=== PATIENT | male | born 1975 | race Hispanic/Latino ===

== ENCOUNTER 2017-06-06 08:52 | Inpatient (IN) | payer OTHER, SELFPAY ==
[~2017-06-06] VITALS: Ht 190.5 cm; Wt 150.4 kg
[2017-06-06 10:03] LABS: BASOPHILS % (AUTO) 0.5 % (0.0-5.0); HEMATOCRIT 39.6 % (42-54); LYMPHOCYTES % (AUTO) 15.7 % (21.0-51.0); MEAN CORPUSCULAR HEMOGLOBIN 29.2 pg (27.0-33.0); MEAN CORPUSCULAR HGB CONC 34.1 g/dL (32.0-36.0); MEAN CORPUSCULAR VOLUME 85.7 fL (79-99); MONOCYTES % (AUTO) 5.7 % (3.0-13.0); NEUTROPHILS % (AUTO) 77.1 % (40.0-77.0); PLATELET COUNT (AUTO) 256 K/uL (130-400); RED BLOOD CELL COUNT(AUTO) 4.62 MIL/uL (4.50-6.20); RED CELL DISTRIBUTION WIDTH 13.6 % (11.0-15.5); WHITE BLOOD COUNT (AUTO) 10.7 K/uL (4.8-10.8)
[2017-06-06 10:14] LABS: CREATININE 0.8 mg/dL (0.5-1.5); POTASSIUM 4.3 mmol/L (3.5-5.1)
[2017-06-06] MEDS ORDERED: ZOSYN 3.375GM+NS 50ML 50 ML IV ONE (11:21)
[2017-06-06] MEDS ORDERED: VANCOMYCIN PROTOCOL PER PHARMACY IV PRN (11:30)
[2017-06-06] MEDS ORDERED: ONDANSETRON HCL 4 MG/2 ML VIAL IV PRN (11:30)
[2017-06-06] MEDS ORDERED: HYDRALAZINE HCL 20 MG/ML VIAL IV PRN (11:30)
[2017-06-06] MEDS ORDERED: MORPHINE SULFATE 2 MG/ML 1ML SYG IV PRN (11:30)
[2017-06-06] MEDS ORDERED: VANCOMYCIN 1GM+NS 250ML 250 ML IV SCH (11:30)
[2017-06-06] MEDS ORDERED: VANCOMYCIN PROTOCOL PER PHARMACY IV SCH (11:45)
[2017-06-06] MEDS ORDERED: ONDANSETRON HCL MDV 20ML 2 MG/ML VIAL IVP PRN (12:30)
[2017-06-06] MEDS ORDERED: SODIUM CHLORIDE 0.9% 1000ML 1,000 ML IV ONE (13:22)
[2017-06-06] MEDS ORDERED: VANCOMYCIN 1GM+NS 250ML 250 ML IV ONE (13:23)
[2017-06-06 20:38] VITALS: BP 159/79
[2017-06-06] MEDS: ZOSYN 3.375GM+NS 50ML 50 ML IV SCH (21:00)
[2017-06-06] MEDS ORDERED: LISI-613 PO (22:16)
[2017-06-06] MEDS ORDERED: METF10004 PO (22:16)
[2017-06-06] MEDS ORDERED: GLIP5TAB11 PO (22:16)
[2017-06-06] MEDS ORDERED: SIMV10TA6 PO (22:16)
[2017-06-06 23:16] VITALS: BP 149/77
[2017-06-07] MEDS: SODIUM CHLORIDE 0.9% 1000ML 1,000 ML IV SCH ×3 (00:21→13:09)
[2017-06-07] MEDS: ACETAMINOPHEN 325 MG TAB PO PRN (01:33)
[2017-06-07 03:19] VITALS: BP 130/66
[2017-06-07 04:48] LABS: INR 0.98 (0.85-1.15); PARTIAL THROMBOPLASTIN TIME 27.9 SEC (26.3-35.5); PROTHROMBIN TIME 10.3 SEC (9.6-11.6)
[2017-06-07 04:54] LABS: HEMATOCRIT 35.8 % (42-54); MEAN CORPUSCULAR HEMOGLOBIN 29.9 pg (27.0-33.0); MEAN CORPUSCULAR HGB CONC 34.9 g/dL (32.0-36.0); MEAN CORPUSCULAR VOLUME 85.7 fL (79-99); PLATELET COUNT (AUTO) 258 K/uL (130-400); RED BLOOD CELL COUNT(AUTO) 4.18 MIL/uL (4.50-6.20); RED CELL DISTRIBUTION WIDTH 13.6 % (11.0-15.5); WHITE BLOOD COUNT (AUTO) 8.3 K/uL (4.8-10.8)
[2017-06-07 04:57] LABS: CREATININE 0.8 mg/dL (0.5-1.5); MAGNESIUM 1.5 mg/dL (1.80-2.40); POTASSIUM 3.8 mmol/L (3.5-5.1)
[2017-06-07 05:07] LABS: HEMOGLOBIN A1C 10.6 % (4.0-6.0)
[2017-06-07] MEDS ORDERED: COMPOUND IV REFRIGERATED 1 EACH IVSOLN MISC PRN (06:30)
[2017-06-07 08:00] VITALS: BP 156/90
[2017-06-07] MEDS: ZOSYN 3.375GM+NS 50ML 50 ML IV SCH ×3 (08:24→21:10)
[2017-06-07] MEDS: PANTOPRAZOLE SODIUM 40 MG TABLET.DR PO SCH (09:00)
[2017-06-07] MEDS: VANCOMYCIN 2.25 GM in SODIUM CHLORIDE 0.9% 500ML 500 ML IV SCH ×2 (10:06→21:09)
[2017-06-07 11:00] VITALS: BP 157/91
[2017-06-07] MEDS ORDERED: MAGNESIUM 2GM PREMIX 50ML 50 ML IV SCH (11:15)
[2017-06-07 16:00] VITALS: BP 143/85
[2017-06-07 19:07] VITALS: BP 143/70
[2017-06-07 23:08] VITALS: BP 157/74
[2017-06-08] VITALS (19 sets, daily range): BP systolic 127–166; BP diastolic 70–93
[2017-06-08] MEDS: SODIUM CHLORIDE 0.9% 1000ML 1,000 ML IV SCH ×3 (03:24→23:24)
[2017-06-08] MEDS: ZOSYN 3.375GM+NS 50ML 50 ML IV SCH ×3 (04:39→21:24)
[2017-06-08 08:02] LABS: CREATININE 0.9 mg/dL (0.5-1.5); POTASSIUM 3.8 mmol/L (3.5-5.1)
[2017-06-08] MEDS: PANTOPRAZOLE SODIUM 40 MG TABLET.DR PO SCH (09:00)
[2017-06-08] MEDS: VANCOMYCIN 2.25 GM in SODIUM CHLORIDE 0.9% 500ML 500 ML IV SCH ×2 (10:21→21:24)
[2017-06-08] MEDS ORDERED: DEXAMETHASONE SOD PHOSPHATE 10MG/ML 1ML VIAL ONE (11:44)
[2017-06-08] MEDS ORDERED: LIDOCAINE PF 2% 5ML ABBOJECT ONE (11:44)
[2017-06-08] MEDS ORDERED: GLYCOPYRROLATE 0.2 MG/ML 5 ML VIAL ONE (11:44)
[2017-06-08] MEDS ORDERED: MIDAZOLAM HCL 1 MG/ML 2ML VIAL ONE (11:47)
[2017-06-08] MEDS ORDERED: PROPOFOL 10 MG/ML 20ML VIAL IV ONE (11:47)
[2017-06-08] MEDS ORDERED: FENTANYL CITRATE PF 50 MCG/1 ML 2ML VIAL ONE ×2 (11:48→12:11)
[2017-06-08] MEDS ORDERED: BACITRACIN 50,000 UNIT VIAL ONE (12:08)
[2017-06-08] MEDS ORDERED: INSULIN GLARGINE 100 UNITS/ML 10 ML VIAL SQ SCH (21:00)
[2017-06-08] MEDS: METFORMIN HCL 500 MG TABLET PO SCH (21:23)
[2017-06-08] MEDS: ATORVASTATIN CALCIUM 10 MG TABLET PO SCH (21:23)
[2017-06-08] MEDS: GLIPIZIDE 5 MG TABLET PO SCH (21:23)
[2017-06-09 03:15] VITALS: BP 146/75
[2017-06-09] MEDS: ZOSYN 3.375GM+NS 50ML 50 ML IV SCH ×3 (04:26→20:20)
[2017-06-09 07:46] VITALS: BP 156/90
[2017-06-09 12:03] VITALS: BP 150/87
[2017-06-09] MEDS: METFORMIN HCL 500 MG TABLET PO SCH ×2 (13:53→16:23)
[2017-06-09] MEDS: VANCOMYCIN 2.25 GM in SODIUM CHLORIDE 0.9% 500ML 500 ML IV SCH ×2 (13:54→20:20)
[2017-06-09] MEDS: LISINOPRIL 20 MG TABLET PO SCH (13:54)
[2017-06-09] MEDS: GLIPIZIDE 5 MG TABLET PO SCH ×2 (13:54→20:20)
[2017-06-09] MEDS: PANTOPRAZOLE SODIUM 40 MG TABLET.DR PO SCH (13:55)
[2017-06-09] MEDS: SODIUM CHLORIDE 0.9% 1000ML 1,000 ML IV SCH ×2 (13:57→19:24)
[2017-06-09 16:14] VITALS: BP 149/82
[2017-06-09] MEDS: ACETAMINOPHEN 325 MG TAB PO PRN (16:26)
[2017-06-09 19:24] VITALS: BP 140/62
[2017-06-09] MEDS: ATORVASTATIN CALCIUM 10 MG TABLET PO SCH (20:19)
[2017-06-09] MEDS: INSULIN GLARGINE 100 UNITS/ML 10 ML VIAL SQ SCH (21:09)
[2017-06-10] VITALS (7 sets, daily range): BP systolic 138–159; BP diastolic 66–90
[2017-06-10 04:27] LABS: HEMATOCRIT 36.7 % (42-54); MEAN CORPUSCULAR HEMOGLOBIN 29.2 pg (27.0-33.0); MEAN CORPUSCULAR VOLUME 85.8 fL (79-99); PLATELET COUNT (AUTO) 271 K/uL (130-400); RED BLOOD CELL COUNT(AUTO) 4.27 MIL/uL (4.50-6.20); RED CELL DISTRIBUTION WIDTH 13.6 % (11.0-15.5); WHITE BLOOD COUNT (AUTO) 9.3 K/uL (4.8-10.8)
[2017-06-10 04:40] LABS: POTASSIUM 3.5 mmol/L (3.5-5.1)
[2017-06-10] MEDS: SODIUM CHLORIDE 0.9% 1000ML 1,000 ML IV SCH ×2 (05:24→17:28)
[2017-06-10] MEDS: ZOSYN 3.375GM+NS 50ML 50 ML IV SCH ×2 (05:34→17:28)
[2017-06-10] MEDS: AMLODIPINE BESYLATE 5 MG TAB PO SCH (12:30)
[2017-06-10] MEDS: METFORMIN HCL 500 MG TABLET PO SCH ×2 (12:30→18:47)
[2017-06-10] MEDS: LISINOPRIL 20 MG TABLET PO SCH (12:30)
[2017-06-10] MEDS: PANTOPRAZOLE SODIUM 40 MG TABLET.DR PO SCH (12:30)
[2017-06-10] MEDS: GLIPIZIDE 5 MG TABLET PO SCH ×2 (12:31→20:40)
[2017-06-10] MEDS: HYDROCHLOROTHIAZIDE 25 MG TABLET PO SCH (12:42)
[2017-06-10] MEDS: VANCOMYCIN 2.25 GM in SODIUM CHLORIDE 0.9% 500ML 500 ML IV SCH ×2 (12:46→23:25)
[2017-06-10] MEDS ORDERED: MORPHINE SULFATE 4 MG/1ML SYG ONE (15:26)
[2017-06-10] MEDS: ATORVASTATIN CALCIUM 10 MG TABLET PO SCH (20:40)
[2017-06-10] MEDS: INSULIN GLARGINE 100 UNITS/ML 10 ML VIAL SQ SCH (20:46)
[2017-06-11] MEDS: ZOSYN 3.375GM+NS 50ML 50 ML IV SCH ×2 (02:36→05:00)
[2017-06-11 04:00] VITALS: BP 140/78
[2017-06-11 06:34] LABS: BASOPHILS % (AUTO) 0.8 % (0.0-5.0); EOSINOPHILS % (AUTO) 1.7 % (0.0-8.0); HEMATOCRIT 36.5 % (42-54); LYMPHOCYTES % (AUTO) 19.3 % (21.0-51.0); MEAN CORPUSCULAR HEMOGLOBIN 30.1 pg (27.0-33.0); MEAN CORPUSCULAR HGB CONC 35.2 g/dL (32.0-36.0); MEAN CORPUSCULAR VOLUME 85.7 fL (79-99); MONOCYTES % (AUTO) 6.5 % (3.0-13.0); NEUTROPHILS % (AUTO) 71.7 % (40.0-77.0); PLATELET COUNT (AUTO) 283 K/uL (130-400); RED BLOOD CELL COUNT(AUTO) 4.26 MIL/uL (4.50-6.20); RED CELL DISTRIBUTION WIDTH 13.3 % (11.0-15.5)
[2017-06-11 06:40] LABS: CREATININE 1.2 mg/dL (0.5-1.5); POTASSIUM 3.5 mmol/L (3.5-5.1)
[2017-06-11 08:04] VITALS: BP 146/78
[2017-06-11] MEDS: VANCOMYCIN 2.25 GM in SODIUM CHLORIDE 0.9% 500ML 500 ML IV SCH (10:03)
[2017-06-11] MEDS: AMLODIPINE BESYLATE 5 MG TAB PO SCH (10:03)
[2017-06-11] MEDS: PANTOPRAZOLE SODIUM 40 MG TABLET.DR PO SCH (10:03)
[2017-06-11] MEDS: LISINOPRIL 20 MG TABLET PO SCH (10:04)
[2017-06-11] MEDS: GLIPIZIDE 5 MG TABLET PO SCH (10:04)
[2017-06-11] MEDS: HYDROCHLOROTHIAZIDE 25 MG TABLET PO SCH (10:05)
[2017-06-11] MEDS: METFORMIN HCL 500 MG TABLET PO SCH (10:08)
[2017-06-11 11:30] VITALS: BP 150/78
[2017-06-11] MEDS ORDERED: PANT40TA PO (13:40)
[2017-06-11] MEDS ORDERED: INSLAN SQ (13:40)
[2017-06-11] MEDS ORDERED: HYDR25TA PO (13:40)
[2017-06-11] MEDS ORDERED: AMLO5TAB4 PO (13:40)
[2017-06-11] MEDS ORDERED: AMOX-429 PO (13:40)
[2017-06-11 15:45] VITALS: BP 144/98
== END 2017-06-11 17:55 | disposition home or self-care (01) | DRG 581 ==
LOC: EDH 08:52 → EDHIP 08:53 → INTOOBSV 11:25 → UNDOADMOB 11:25 → OBSVTOIN 11:25 → EDHIP 11:25 → 3DH 20:34 → EDHIP 20:34
PROVIDERS: ADMIT Internal Medicine Nephrology; ATTEND Internal Medicine Nephrology
PROC: 0W960ZZ Drainage of Neck, Open Approach (ICD-10-PCS; principal; 2017-06-08 12:12)
DX: L03.221 Cellulitis of neck (principal); E83.42 Hypomagnesemia; L02.11 Cutaneous abscess of neck; E11.9 Type 2 diabetes mellitus without complications; I10 Essential (primary) hypertension; E66.9 Obesity, unspecified; Z83.3 Family history of diabetes mellitus; Z87.891 Personal history of nicotine dependence
CPT/HCPCS: 36415; 76536; 80048; 80061; 80202; 82948; 83036; 83735; 85025; 85027; 85610; 85730; 87040; 87070; 87076; 87077; 87186; 87205; A4606; J1100; J2001; J2250; J2270; J2543; J2704; J3010; J3370; J3475; J3490; J7030; J7040

== ENCOUNTER → 2017-06-19 | Outpatient (CLI) | payer SELFPAY ==
[~2017-06-19] MED LIST: AMLO5TAB4 PO; AMOX-429 PO; GLIP5TAB11 PO; HYDR25TA PO; INSLAN SQ; LISI-613 PO; METF10004 PO; PANT40TA PO; SIMV10TA6 PO
[2017-06-19 10:17] VITALS: BP 153/87
== END | disposition home or self-care (01) ==
LOC: WHH 09:45
PROVIDERS: ATTEND Emergency Medicine
DX: E11.622 Type 2 diabetes mellitus with other skin ulcer (principal); L98.491 Non-pressure chronic ulcer of skin of other sites limited to breakdown of skin; E66.9 Obesity, unspecified; I10 Essential (primary) hypertension; Z87.891 Personal history of nicotine dependence
CPT/HCPCS: 99211

== ENCOUNTER → 2019-12-29 | Outpatient (CLI) | payer BC ==
[~2019-12-29] MED LIST changes: -AMOX-429 PO; -GLIP5TAB11 PO; -HYDR25TA PO; +METF-446 PO; -METF10004 PO; -PANT40TA PO; -SIMV10TA6 PO; +SIMV10TA97 PO
== END | disposition home or self-care (01) ==
LOC: WHH 10:25
PROVIDERS: ATTEND Podiatrist Foot & Ankle Surgery
DX: M72.6 Necrotizing fasciitis (principal); E11.9 Type 2 diabetes mellitus without complications; I10 Essential (primary) hypertension; E78.5 Hyperlipidemia, unspecified; E66.01 Morbid (severe) obesity due to excess calories; Z79.4 Long term (current) use of insulin; Z79.899 Other long term (current) drug therapy
CPT/HCPCS: 99211; L3260

== ENCOUNTER → 2019-12-30 | Outpatient (CLI) | payer BC | END | disposition home or self-care (01) | LOC: WHH 11:00 | PROVIDERS: ATTEND Podiatrist Foot & Ankle Surgery | DX: M72.6 Necrotizing fasciitis (principal); E11.9 Type 2 diabetes mellitus without complications; I10 Essential (primary) hypertension; E78.5 Hyperlipidemia, unspecified; E66.01 Morbid (severe) obesity due to excess calories; Z79.4 Long term (current) use of insulin; Z79.899 Other long term (current) drug therapy | CPT/HCPCS: 99211 ==

== ENCOUNTER → 2020-01-03 | Outpatient (CLI) | payer BC | END | disposition home or self-care (01) | LOC: WHH 11:00 | PROVIDERS: ATTEND Podiatrist Foot & Ankle Surgery | DX: M72.6 Necrotizing fasciitis (principal); E11.9 Type 2 diabetes mellitus without complications; I10 Essential (primary) hypertension; E78.5 Hyperlipidemia, unspecified; E66.01 Morbid (severe) obesity due to excess calories; Z79.4 Long term (current) use of insulin; Z79.899 Other long term (current) drug therapy | CPT/HCPCS: 99211 ==

== ENCOUNTER → 2020-01-04 | Outpatient (CLI) | payer BC | END | disposition home or self-care (01) | LOC: WHH 10:30 | PROVIDERS: ATTEND Podiatrist Foot & Ankle Surgery | DX: M72.6 Necrotizing fasciitis (principal); E11.9 Type 2 diabetes mellitus without complications; I10 Essential (primary) hypertension; E78.5 Hyperlipidemia, unspecified; E66.01 Morbid (severe) obesity due to excess calories; Z79.4 Long term (current) use of insulin; Z79.899 Other long term (current) drug therapy | CPT/HCPCS: 99211 ==

== ENCOUNTER → 2020-01-05 | Outpatient (CLI) | payer BC | END | disposition home or self-care (01) | LOC: WHH 11:00 | PROVIDERS: ATTEND Podiatrist Foot & Ankle Surgery | DX: M72.6 Necrotizing fasciitis (principal); E11.621 Type 2 diabetes mellitus with foot ulcer; I87.312 Chronic venous hypertension (idiopathic) with ulcer of left lower extremity; L97.523 Non-pressure chronic ulcer of other part of left foot with necrosis of muscle; I10 Essential (primary) hypertension; E78.5 Hyperlipidemia, unspecified; E66.01 Morbid (severe) obesity due to excess calories; Z79.4 Long term (current) use of insulin; Z79.899 Other long term (current) drug therapy; Z68.39 Body mass index [BMI] 39.0-39.9, adult | CPT/HCPCS: 11042; 11045; A6209 ==

== ENCOUNTER → 2020-01-19 | Outpatient (CLI) | payer BC ==
[~2020-01-19] MED LIST changes: +LIDOCAINE HCL 2% JELLY 5 ML TP ONE
== END | disposition home or self-care (01) ==
LOC: WHH 09:45
PROVIDERS: ATTEND Podiatrist Foot & Ankle Surgery
DX: M72.6 Necrotizing fasciitis (principal); E11.621 Type 2 diabetes mellitus with foot ulcer; I87.312 Chronic venous hypertension (idiopathic) with ulcer of left lower extremity; L97.523 Non-pressure chronic ulcer of other part of left foot with necrosis of muscle; I10 Essential (primary) hypertension; E78.5 Hyperlipidemia, unspecified; E66.01 Morbid (severe) obesity due to excess calories; Z79.4 Long term (current) use of insulin; Z79.899 Other long term (current) drug therapy; Z68.39 Body mass index [BMI] 39.0-39.9, adult
CPT/HCPCS: 11042; A6209

== ENCOUNTER → 2020-01-26 | Outpatient (CLI) | payer BC ==
[~2020-01-26] MED LIST changes: -LIDOCAINE HCL 2% JELLY 5 ML TP ONE
== END | disposition home or self-care (01) ==
LOC: WHH 10:00
PROVIDERS: ATTEND Podiatrist Foot & Ankle Surgery
DX: M72.6 Necrotizing fasciitis (principal); E11.621 Type 2 diabetes mellitus with foot ulcer; I87.312 Chronic venous hypertension (idiopathic) with ulcer of left lower extremity; L97.523 Non-pressure chronic ulcer of other part of left foot with necrosis of muscle; I10 Essential (primary) hypertension; E78.5 Hyperlipidemia, unspecified; E66.01 Morbid (severe) obesity due to excess calories; Z79.4 Long term (current) use of insulin; Z79.899 Other long term (current) drug therapy; Z68.39 Body mass index [BMI] 39.0-39.9, adult
CPT/HCPCS: 99214; A6209; L3260

== ENCOUNTER → 2020-02-02 | Outpatient (CLI) | payer BC | END | disposition home or self-care (01) | LOC: WHH 09:30 | PROVIDERS: ATTEND Podiatrist Foot & Ankle Surgery | DX: M72.6 Necrotizing fasciitis (principal); E11.621 Type 2 diabetes mellitus with foot ulcer; I87.312 Chronic venous hypertension (idiopathic) with ulcer of left lower extremity; L97.523 Non-pressure chronic ulcer of other part of left foot with necrosis of muscle; I10 Essential (primary) hypertension; E78.5 Hyperlipidemia, unspecified; E66.01 Morbid (severe) obesity due to excess calories; Z79.4 Long term (current) use of insulin; Z79.899 Other long term (current) drug therapy; Z68.39 Body mass index [BMI] 39.0-39.9, adult | CPT/HCPCS: 11042; 11045; A6209 ==

== ENCOUNTER → 2020-02-23 | Outpatient (CLI) | payer BC ==
[~2020-02-23] MED LIST changes: +LIDOCAINE HCL 2% JELLY 5 ML TP ONE
== END | disposition home or self-care (01) ==
LOC: WHH 09:45
PROVIDERS: ATTEND Podiatrist Foot & Ankle Surgery
DX: M72.6 Necrotizing fasciitis (principal); E11.621 Type 2 diabetes mellitus with foot ulcer; I87.312 Chronic venous hypertension (idiopathic) with ulcer of left lower extremity; L97.523 Non-pressure chronic ulcer of other part of left foot with necrosis of muscle; I10 Essential (primary) hypertension; E78.5 Hyperlipidemia, unspecified; E66.01 Morbid (severe) obesity due to excess calories; Z79.4 Long term (current) use of insulin; Z79.899 Other long term (current) drug therapy; Z68.39 Body mass index [BMI] 39.0-39.9, adult
CPT/HCPCS: 99214; A6209; A6450

== ENCOUNTER → 2020-03-08 | Outpatient (CLI) | payer BC ==
[~2020-03-08] MED LIST changes: -LIDOCAINE HCL 2% JELLY 5 ML TP ONE
== END | disposition home or self-care (01) ==
LOC: WHH 08:00
PROVIDERS: ATTEND Podiatrist Foot & Ankle Surgery
DX: M72.6 Necrotizing fasciitis (principal); E11.621 Type 2 diabetes mellitus with foot ulcer; I87.312 Chronic venous hypertension (idiopathic) with ulcer of left lower extremity; L97.523 Non-pressure chronic ulcer of other part of left foot with necrosis of muscle; I10 Essential (primary) hypertension; E78.5 Hyperlipidemia, unspecified; E66.01 Morbid (severe) obesity due to excess calories; Z79.4 Long term (current) use of insulin; Z79.899 Other long term (current) drug therapy; Z68.39 Body mass index [BMI] 39.0-39.9, adult
CPT/HCPCS: 11042; A6209; A6450

== ENCOUNTER → 2020-03-22 | Outpatient (CLI) | payer BC ==
[~2020-03-22] MED LIST changes: +LIDOCAINE HCL 2% JELLY 5 ML TP ONE; -LISI-613 PO; +LISI20TA24 PO
== END | disposition home or self-care (01) ==
LOC: WHH 08:00
PROVIDERS: ATTEND Podiatrist Foot & Ankle Surgery
DX: M72.6 Necrotizing fasciitis (principal); E11.621 Type 2 diabetes mellitus with foot ulcer; I87.312 Chronic venous hypertension (idiopathic) with ulcer of left lower extremity; L97.523 Non-pressure chronic ulcer of other part of left foot with necrosis of muscle; I10 Essential (primary) hypertension; E78.5 Hyperlipidemia, unspecified; E66.01 Morbid (severe) obesity due to excess calories; Z79.4 Long term (current) use of insulin; Z79.899 Other long term (current) drug therapy; Z68.39 Body mass index [BMI] 39.0-39.9, adult
CPT/HCPCS: 99214; A6209

== ENCOUNTER → 2020-04-12 | Outpatient (CLI) | payer BC ==
[~2020-04-12] MED LIST changes: -LIDOCAINE HCL 2% JELLY 5 ML TP ONE
== END | disposition home or self-care (01) ==
LOC: WHH 08:00
PROVIDERS: ATTEND Podiatrist Foot & Ankle Surgery
DX: M72.6 Necrotizing fasciitis (principal); E11.621 Type 2 diabetes mellitus with foot ulcer; I87.312 Chronic venous hypertension (idiopathic) with ulcer of left lower extremity; L97.523 Non-pressure chronic ulcer of other part of left foot with necrosis of muscle; I10 Essential (primary) hypertension; E78.5 Hyperlipidemia, unspecified; E66.01 Morbid (severe) obesity due to excess calories; Z79.4 Long term (current) use of insulin; Z79.899 Other long term (current) drug therapy; Z68.39 Body mass index [BMI] 39.0-39.9, adult
CPT/HCPCS: 99214; A4450; A6209

== ENCOUNTER → 2020-04-13 | Outpatient (CLI) | payer BC | END | disposition home or self-care (01) | LOC: RAH 12:13 | PROVIDERS: ATTEND Podiatrist Foot & Ankle Surgery | DX: E11.621 Type 2 diabetes mellitus with foot ulcer (principal); M79.89 Other specified soft tissue disorders | CPT/HCPCS: 73630 ==

== ENCOUNTER → 2020-04-26 | Outpatient (CLI) | payer BC | END | disposition home or self-care (01) | LOC: WHH 08:00 | PROVIDERS: ATTEND Podiatrist Foot & Ankle Surgery | DX: M72.6 Necrotizing fasciitis (principal); E11.621 Type 2 diabetes mellitus with foot ulcer; I87.312 Chronic venous hypertension (idiopathic) with ulcer of left lower extremity; L97.523 Non-pressure chronic ulcer of other part of left foot with necrosis of muscle; I10 Essential (primary) hypertension; I96 Gangrene, not elsewhere classified; E78.5 Hyperlipidemia, unspecified; E66.01 Morbid (severe) obesity due to excess calories; Z79.4 Long term (current) use of insulin; Z79.899 Other long term (current) drug therapy; Z68.39 Body mass index [BMI] 39.0-39.9, adult | CPT/HCPCS: 99214; A6209; L3260 ==

== ENCOUNTER → 2020-05-17 | Outpatient (CLI) | payer BC ==
[~2020-05-17] MED LIST changes: +LIDOCAINE HCL 2% JELLY 5 ML TP ONE
== END | disposition home or self-care (01) ==
LOC: WHH 08:00
PROVIDERS: ATTEND Podiatrist Foot & Ankle Surgery
DX: M00.9 Pyogenic arthritis, unspecified (principal); M72.6 Necrotizing fasciitis; E11.621 Type 2 diabetes mellitus with foot ulcer; I87.312 Chronic venous hypertension (idiopathic) with ulcer of left lower extremity; L97.523 Non-pressure chronic ulcer of other part of left foot with necrosis of muscle; E11.52 Type 2 diabetes mellitus with diabetic peripheral angiopathy with gangrene; I96 Gangrene, not elsewhere classified; E78.5 Hyperlipidemia, unspecified; E66.01 Morbid (severe) obesity due to excess calories; Z79.4 Long term (current) use of insulin; Z79.899 Other long term (current) drug therapy; Z68.39 Body mass index [BMI] 39.0-39.9, adult
CPT/HCPCS: 99214; A6209

== ENCOUNTER → 2020-05-31 | Outpatient (CLI) | payer BC ==
[~2020-05-31] MED LIST changes: +AMLO-97 PO; +CEPH500T PO; +INSU100V12 SQ; +METF-445 PO; +SIMV-43 PO
== END | disposition home or self-care (01) ==
LOC: WHH 08:00
PROVIDERS: ATTEND Podiatrist Foot & Ankle Surgery
DX: M72.6 Necrotizing fasciitis (principal); E11.621 Type 2 diabetes mellitus with foot ulcer; I87.312 Chronic venous hypertension (idiopathic) with ulcer of left lower extremity; L97.523 Non-pressure chronic ulcer of other part of left foot with necrosis of muscle; E11.42 Type 2 diabetes mellitus with diabetic polyneuropathy; M00.9 Pyogenic arthritis, unspecified; E11.52 Type 2 diabetes mellitus with diabetic peripheral angiopathy with gangrene; I96 Gangrene, not elsewhere classified; I10 Essential (primary) hypertension; M79.89 Other specified soft tissue disorders; E78.5 Hyperlipidemia, unspecified; E66.01 Morbid (severe) obesity due to excess calories; Z79.4 Long term (current) use of insulin; Z79.899 Other long term (current) drug therapy; Z68.39 Body mass index [BMI] 39.0-39.9, adult
CPT/HCPCS: 99214; A4450; A6209

== ENCOUNTER 2020-06-07 05:33 | Day surgery (SDC) | payer BC ==
[2020-06-06 11:12] VITALS: BP 159/75
[~2020-06-07] VITALS: Ht 190.5 cm; Wt 145.6 kg
[2020-06-07] VITALS (11 sets, daily range): BP systolic 140–176; BP diastolic 76–89
[~2020-06-07 05:33] MED LIST changes: -AMLO5TAB4 PO; -INSLAN SQ; -LIDOCAINE HCL 2% JELLY 5 ML TP ONE; -LISI20TA24 PO; -METF-446 PO; -SIMV10TA97 PO
[2020-06-07] MEDS ORDERED: SODIUM CHLORIDE 0.9% 1000ML 1,000 ML IV ONE (05:51)
[2020-06-07] MEDS ORDERED: BUPIVACAINE/PF 0.5% 30ML VIAL ONE (06:14)
[2020-06-07] MEDS ORDERED: LIDOCAINE HCL 1% 20 ML VIAL ONE (06:14)
[2020-06-07] MEDS ORDERED: MIDAZOLAM HCL 1 MG/ML 2ML VIAL ONE (06:52)
[2020-06-07] MEDS ORDERED: FENTANYL CITRATE PF 50 MCG/1 ML 2ML VIAL ONE (06:52)
[2020-06-07] MEDS ORDERED: CEFAZOLIN SODIUM 1 GM VIAL ONE (06:57)
[2020-06-07] MEDS ORDERED: ONDANSETRON HCL 4 MG/2 ML VIAL ONE (07:11)
== END 2020-06-07 09:15 | disposition home or self-care (01) ==
LOC: DAH 05:33
PROVIDERS: ATTEND Podiatrist Foot & Ankle Surgery
DX: I96 Gangrene, not elsewhere classified (principal); Z20.822 Contact with and (suspected) exposure to COVID-19; E11.69 Type 2 diabetes mellitus with other specified complication; M86.8X7 Other osteomyelitis, ankle and foot; S98.132A Complete traumatic amputation of one left lesser toe, initial encounter; I10 Essential (primary) hypertension; Z98.890 Other specified postprocedural states; Z79.899 Other long term (current) drug therapy
CPT/HCPCS: 28820; 73630; 82948 ×2; 87070; 87076; 87205; A4215; A4221; A4222; A4223; A4663; A6445; A6446; C9803; J0690; J2250; J2405; J3010; J3490; J7030; U0003

== ENCOUNTER → 2020-06-21 | Outpatient (CLI) | payer BC | END | disposition home or self-care (01) | LOC: WHH 08:00 | PROVIDERS: ATTEND Podiatrist Foot & Ankle Surgery | DX: T87.89 Other complications of amputation stump (principal); E11.621 Type 2 diabetes mellitus with foot ulcer; I87.312 Chronic venous hypertension (idiopathic) with ulcer of left lower extremity; L97.523 Non-pressure chronic ulcer of other part of left foot with necrosis of muscle; M72.6 Necrotizing fasciitis; E11.42 Type 2 diabetes mellitus with diabetic polyneuropathy; M00.9 Pyogenic arthritis, unspecified; E11.52 Type 2 diabetes mellitus with diabetic peripheral angiopathy with gangrene; I96 Gangrene, not elsewhere classified; M79.89 Other specified soft tissue disorders; I10 Essential (primary) hypertension; E78.5 Hyperlipidemia, unspecified; E66.01 Morbid (severe) obesity due to excess calories; Z79.4 Long term (current) use of insulin; Z79.899 Other long term (current) drug therapy; Z68.39 Body mass index [BMI] 39.0-39.9, adult; Y83.5 Amputation of limb(s) as the cause of abnormal reaction of the patient, or of later complication, without mention of misadventure at the time of the procedure | CPT/HCPCS: 99214; A4649 ==

== ENCOUNTER → 2020-07-05 | Outpatient (CLI) | payer BC | END | disposition home or self-care (01) | LOC: WHH 08:10 | PROVIDERS: ATTEND Podiatrist Foot & Ankle Surgery | DX: T87.89 Other complications of amputation stump (principal); E11.621 Type 2 diabetes mellitus with foot ulcer; I87.312 Chronic venous hypertension (idiopathic) with ulcer of left lower extremity; L97.523 Non-pressure chronic ulcer of other part of left foot with necrosis of muscle; M72.6 Necrotizing fasciitis; E11.42 Type 2 diabetes mellitus with diabetic polyneuropathy; M00.9 Pyogenic arthritis, unspecified; E11.52 Type 2 diabetes mellitus with diabetic peripheral angiopathy with gangrene; I96 Gangrene, not elsewhere classified; M79.89 Other specified soft tissue disorders; I10 Essential (primary) hypertension; E78.5 Hyperlipidemia, unspecified; E66.01 Morbid (severe) obesity due to excess calories; Z79.4 Long term (current) use of insulin; Z79.899 Other long term (current) drug therapy; Z68.39 Body mass index [BMI] 39.0-39.9, adult; Y83.5 Amputation of limb(s) as the cause of abnormal reaction of the patient, or of later complication, without mention of misadventure at the time of the procedure | CPT/HCPCS: 99214; A4450; A4649 ==

== ENCOUNTER 2020-07-12 08:00 | Outpatient (CLI) | payer BC | END 2020-07-12 16:00 | disposition home or self-care (01) | LOC: WHH 08:00 | PROVIDERS: ATTEND Podiatrist Foot & Ankle Surgery | DX: T87.89 Other complications of amputation stump (principal); E11.621 Type 2 diabetes mellitus with foot ulcer; I87.312 Chronic venous hypertension (idiopathic) with ulcer of left lower extremity; L97.523 Non-pressure chronic ulcer of other part of left foot with necrosis of muscle; M72.6 Necrotizing fasciitis; E11.42 Type 2 diabetes mellitus with diabetic polyneuropathy; M00.9 Pyogenic arthritis, unspecified; E11.52 Type 2 diabetes mellitus with diabetic peripheral angiopathy with gangrene; I96 Gangrene, not elsewhere classified; M79.89 Other specified soft tissue disorders; I10 Essential (primary) hypertension; E78.5 Hyperlipidemia, unspecified; E66.01 Morbid (severe) obesity due to excess calories; Z79.4 Long term (current) use of insulin; Z79.899 Other long term (current) drug therapy; Z68.39 Body mass index [BMI] 39.0-39.9, adult; Y83.5 Amputation of limb(s) as the cause of abnormal reaction of the patient, or of later complication, without mention of misadventure at the time of the procedure | CPT/HCPCS: 99214 ==

== ENCOUNTER → 2021-12-13 | Outpatient (CLI) | payer BC ==
[~2021-12-13] MED LIST changes: +AMLO-142 PO; -AMLO-97 PO; -CEPH500T PO; +DAPA10TA PO; +FENO160 PO; +FURO40TA5 PO; +GENTAMICIN 15 GM CREAM TP ONE; -INSU100V12 SQ; +LEVO50CA4 PO; -METF-445 PO; +MUPI22O TP; -SIMV-43 PO
== END | disposition home or self-care (01) ==
LOC: WHH 08:02
PROVIDERS: ATTEND Family Medicine
DX: E11.622 Type 2 diabetes mellitus with other skin ulcer (principal); L97.812 Non-pressure chronic ulcer of other part of right lower leg with fat layer exposed; L97.828 Non-pressure chronic ulcer of other part of left lower leg with other specified severity; E11.621 Type 2 diabetes mellitus with foot ulcer; L97.512 Non-pressure chronic ulcer of other part of right foot with fat layer exposed; L03.115 Cellulitis of right lower limb; L03.116 Cellulitis of left lower limb; E11.52 Type 2 diabetes mellitus with diabetic peripheral angiopathy with gangrene; I96 Gangrene, not elsewhere classified; I10 Essential (primary) hypertension; E78.5 Hyperlipidemia, unspecified; E03.9 Hypothyroidism, unspecified; E66.9 Obesity, unspecified; R60.9 Edema, unspecified; Z68.41 Body mass index [BMI] 40.0-44.9, adult; Z79.4 Long term (current) use of insulin; Z79.899 Other long term (current) drug therapy
CPT/HCPCS: 11042; 11045; A6209 ×3; A4450

== ENCOUNTER → 2021-12-27 | Outpatient (CLI) | payer BC ==
[~2021-12-27] MED LIST changes: -GENTAMICIN 15 GM CREAM TP ONE
== END | disposition home or self-care (01) ==
LOC: WHH 08:03
PROVIDERS: ATTEND Family Medicine
DX: E11.621 Type 2 diabetes mellitus with foot ulcer (principal); L97.512 Non-pressure chronic ulcer of other part of right foot with fat layer exposed; L03.115 Cellulitis of right lower limb; L03.116 Cellulitis of left lower limb; E11.52 Type 2 diabetes mellitus with diabetic peripheral angiopathy with gangrene; I96 Gangrene, not elsewhere classified; I10 Essential (primary) hypertension; E78.5 Hyperlipidemia, unspecified; E03.9 Hypothyroidism, unspecified; R60.9 Edema, unspecified; E66.9 Obesity, unspecified; Z68.41 Body mass index [BMI] 40.0-44.9, adult; Z79.4 Long term (current) use of insulin; Z79.899 Other long term (current) drug therapy
CPT/HCPCS: 99211; A6209 ×2; A4450; G0463

== ENCOUNTER → 2022-01-03 | Outpatient (CLI) | payer BC ==
[~2022-01-03] MED LIST changes: +LIDOCAINE HCL 4% LTA SOL 4 ML VIAL TP ONE
== END | disposition home or self-care (01) ==
LOC: WHH 07:45
PROVIDERS: ATTEND Family Medicine
DX: E11.621 Type 2 diabetes mellitus with foot ulcer (principal); L97.512 Non-pressure chronic ulcer of other part of right foot with fat layer exposed; L03.115 Cellulitis of right lower limb; L03.116 Cellulitis of left lower limb; E11.52 Type 2 diabetes mellitus with diabetic peripheral angiopathy with gangrene; I96 Gangrene, not elsewhere classified; I10 Essential (primary) hypertension; E78.5 Hyperlipidemia, unspecified; E03.9 Hypothyroidism, unspecified; E66.9 Obesity, unspecified; R60.9 Edema, unspecified; Z68.41 Body mass index [BMI] 40.0-44.9, adult; Z79.4 Long term (current) use of insulin; Z79.899 Other long term (current) drug therapy
CPT/HCPCS: 11042; 11045; A6209

== ENCOUNTER → 2022-01-31 | Outpatient (CLI) | payer BC | END | disposition home or self-care (01) | LOC: WHH 07:59 | PROVIDERS: ATTEND Family Medicine | DX: I87.333 Chronic venous hypertension (idiopathic) with ulcer and inflammation of bilateral lower extremity (principal); E11.621 Type 2 diabetes mellitus with foot ulcer; L97.512 Non-pressure chronic ulcer of other part of right foot with fat layer exposed; E11.622 Type 2 diabetes mellitus with other skin ulcer; L97.822 Non-pressure chronic ulcer of other part of left lower leg with fat layer exposed; L03.116 Cellulitis of left lower limb; L03.115 Cellulitis of right lower limb; E11.52 Type 2 diabetes mellitus with diabetic peripheral angiopathy with gangrene; I96 Gangrene, not elsewhere classified; I10 Essential (primary) hypertension; E78.5 Hyperlipidemia, unspecified; E03.9 Hypothyroidism, unspecified; E66.9 Obesity, unspecified; R60.9 Edema, unspecified; Z68.41 Body mass index [BMI] 40.0-44.9, adult; Z79.4 Long term (current) use of insulin; Z79.899 Other long term (current) drug therapy | CPT/HCPCS: 11042; 11045; A6209 ==

== ENCOUNTER → 2022-02-07 | Outpatient (CLI) | payer BC | END | disposition home or self-care (01) | LOC: WHH 07:56 | PROVIDERS: ATTEND Family Medicine | DX: I87.333 Chronic venous hypertension (idiopathic) with ulcer and inflammation of bilateral lower extremity (principal); E11.621 Type 2 diabetes mellitus with foot ulcer; L97.512 Non-pressure chronic ulcer of other part of right foot with fat layer exposed; E11.622 Type 2 diabetes mellitus with other skin ulcer; L97.822 Non-pressure chronic ulcer of other part of left lower leg with fat layer exposed; L03.116 Cellulitis of left lower limb; L03.115 Cellulitis of right lower limb; E11.52 Type 2 diabetes mellitus with diabetic peripheral angiopathy with gangrene; I96 Gangrene, not elsewhere classified; E78.5 Hyperlipidemia, unspecified; E03.9 Hypothyroidism, unspecified; R60.9 Edema, unspecified; E66.9 Obesity, unspecified; Z68.41 Body mass index [BMI] 40.0-44.9, adult; Z79.4 Long term (current) use of insulin; Z79.899 Other long term (current) drug therapy | CPT/HCPCS: 11042; 11045; A6209 ==

== ENCOUNTER → 2022-02-14 | Outpatient (CLI) | payer BC | END | disposition home or self-care (01) | LOC: WHH 08:09 | PROVIDERS: ATTEND Family Medicine | DX: I87.333 Chronic venous hypertension (idiopathic) with ulcer and inflammation of bilateral lower extremity (principal); E11.621 Type 2 diabetes mellitus with foot ulcer; L97.512 Non-pressure chronic ulcer of other part of right foot with fat layer exposed; E11.622 Type 2 diabetes mellitus with other skin ulcer; L97.822 Non-pressure chronic ulcer of other part of left lower leg with fat layer exposed; L03.116 Cellulitis of left lower limb; L03.115 Cellulitis of right lower limb; E11.52 Type 2 diabetes mellitus with diabetic peripheral angiopathy with gangrene; I96 Gangrene, not elsewhere classified; E78.5 Hyperlipidemia, unspecified; E03.9 Hypothyroidism, unspecified; R60.9 Edema, unspecified; E66.9 Obesity, unspecified; Z68.41 Body mass index [BMI] 40.0-44.9, adult; Z79.4 Long term (current) use of insulin; Z79.899 Other long term (current) drug therapy | CPT/HCPCS: 11042; 11045; A6209 ==

== ENCOUNTER → 2022-02-28 | Outpatient (CLI) | payer BC | END | disposition home or self-care (01) | LOC: WHH 08:03 | PROVIDERS: ATTEND Family Medicine | DX: I87.333 Chronic venous hypertension (idiopathic) with ulcer and inflammation of bilateral lower extremity (principal); E11.621 Type 2 diabetes mellitus with foot ulcer; L97.512 Non-pressure chronic ulcer of other part of right foot with fat layer exposed; E11.622 Type 2 diabetes mellitus with other skin ulcer; L97.822 Non-pressure chronic ulcer of other part of left lower leg with fat layer exposed; L03.116 Cellulitis of left lower limb; L03.115 Cellulitis of right lower limb; E11.52 Type 2 diabetes mellitus with diabetic peripheral angiopathy with gangrene; I96 Gangrene, not elsewhere classified; E78.5 Hyperlipidemia, unspecified; E03.9 Hypothyroidism, unspecified; R60.9 Edema, unspecified; E66.9 Obesity, unspecified; Z68.41 Body mass index [BMI] 40.0-44.9, adult; Z79.4 Long term (current) use of insulin; Z79.899 Other long term (current) drug therapy | CPT/HCPCS: 11042; A6248; A4450 ==

== ENCOUNTER 2023-08-25 07:45 | Inpatient (IN) | payer BC, OTHER ==
[2023-08-25] VITALS (23 sets, daily range): BP systolic 134–169; BP diastolic 59–80; PULSE 61–73; RESP 14–18; TEMP 97.6–98
[~2023-08-25] VITALS: Ht 190.5 cm; Wt 138.3 kg
[~2023-08-25 07:45] MED LIST changes: -LIDOCAINE HCL 4% LTA SOL 4 ML VIAL TP ONE
[2023-08-25 08:18] LABS: BASOPHILS # (AUTO) 0.08 K/uL (0.00-0.20); EOSINOPHILS # (AUTO) 0.33 K/uL (0.00-0.70); HEMATOCRIT 27.3 % (42-54); IMMATURE GRANULOCYTE ABSOLUTE 0.05 K/uL (0-1); LYMPHOCYTES # (AUTO) 0.7 K/uL (1.0-4.8); LYMPHOCYTES % (AUTO) 8.4 % (21.0-51.0); MEAN CORPUSCULAR HEMOGLOBIN 29.6 pg (27.0-33.0); MEAN CORPUSCULAR HGB CONC 30.8 g/dL (32.0-36.0); MEAN CORPUSCULAR VOLUME 96.1 fL (79-99); MONOCYTES # (AUTO) 0.6 K/uL (0.1-1.0); MONOCYTES % (AUTO) 7.2 % (3.0-13.0); NEUTROPHILS # (AUTO) 6.5 K/uL (1.8-7.7); NEUTROPHILS % (AUTO) 78.8 % (40.0-77.0); PLATELET COUNT (AUTO) 231 K/uL (130-400); RED BLOOD CELL COUNT(AUTO) 2.84 MIL/uL (4.50-6.20); RED CELL DISTRIBUTION WIDTH 13.4 % (11.0-15.5); WHITE BLOOD COUNT (AUTO) 8.2 K/uL (4.8-10.8)
[2023-08-25 08:24] LABS: INR 1.14 (0.85-1.15); PROTHROMBIN TIME 12.2 SEC (9.6-11.6)
[2023-08-25 08:30] LABS: ALBUMIN 3.7 g/dL (3.5-5.0); BILIRUBIN,TOTAL 0.6 mg/dL (0.2-1.0); POTASSIUM 5.3 mmol/L (3.5-5.1); TOTAL PROTEIN, SERUM 7.9 g/dL (6.0-8.3)
[2023-08-25 08:46] LABS: CREATININE 9.5 mg/dL (0.5-1.3)
[2023-08-25] MEDS: ALBUTEROL 0.083% 2.5 MG/3 ML INH IH ONE (10:01)
[2023-08-25] MEDS ORDERED: ONDANSETRON 4MG INJ IVP PRN (10:30)
[2023-08-25] MEDS ORDERED: ACETAMINOPHEN 325 MG TAB PO PRN ×2 (10:30)
[2023-08-25] MEDS: INSULIN LISPRO 100 UNIT/ML 3ML SQ SCH (11:30)
[2023-08-25] MEDS: KAYEXALATE 15GM/60ML PO ONE (11:45)
[2023-08-25] MEDS: HEPARIN 5,000 UNIT VIAL SQ SCH (11:48)
[2023-08-25] MEDS ORDERED: LIDOCAINE HCL 400MG/20ML VIAL ONE (13:10)
[2023-08-25] MEDS ORDERED: HEPARIN 1,000 UNIT VIAL ONE (13:10)
[2023-08-25] MEDS ORDERED: FENTANYL CITRATE PF 50 MCG/1 ML 2ML VIAL ONE (13:42)
[2023-08-25] MEDS ORDERED: MIDAZOLAM HCL 1 MG/ML 2ML VIAL ONE (13:42)
[2023-08-25 16:21] LABS: HEMATOCRIT 25.8 % (42-54)
[2023-08-25 16:48] LABS: ALBUMIN 3.6 g/dL (3.5-5.0)
[2023-08-25 16:50] LABS: CREATININE 9.5 mg/dL (0.5-1.3)
[2023-08-25 16:54] LABS: HEMOGLOBIN A1C 5.8 % (4.0-6.0)
[2023-08-25 17:29] LABS: HIV 1&2 ANTIBODY Non-Reactive (Negative); HIV-1 p24 Antigen Non-Reactive (Negative)
[2023-08-25] MEDS: 0.9%NACL 1000ML 1,000 ML IV SCH (17:31)
[2023-08-26] VITALS (21 sets, daily range): BP systolic 143–172; BP diastolic 64–82; PULSE 60–73; RESP 16–18; TEMP 98.1–98.3; O2SAT 94–95
[2023-08-26] MEDS ORDERED: LABE200T7 PO (00:55)
[2023-08-26 06:13] LABS: BASOPHILS # (AUTO) 0.04 K/uL (0.00-0.20); BASOPHILS % (AUTO) 0.7 % (0.0-5.0); EOSINOPHILS # (AUTO) 0.19 K/uL (0.00-0.70); EOSINOPHILS % (AUTO) 3.3 % (0.0-8.0); HEMATOCRIT 24.7 % (42-54); IMMATURE GRANULOCYTE ABSOLUTE 0.03 K/uL (0-1); LYMPHOCYTES # (AUTO) 0.6 K/uL (1.0-4.8); LYMPHOCYTES % (AUTO) 10.7 % (21.0-51.0); MEAN CORPUSCULAR HEMOGLOBIN 29.3 pg (27.0-33.0); MEAN CORPUSCULAR HGB CONC 30.4 g/dL (32.0-36.0); MEAN CORPUSCULAR VOLUME 96.5 fL (79-99); MONOCYTES # (AUTO) 0.5 K/uL (0.1-1.0); MONOCYTES % (AUTO) 8.2 % (3.0-13.0); NEUTROPHILS # (AUTO) 4.4 K/uL (1.8-7.7); NEUTROPHILS % (AUTO) 76.6 % (40.0-77.0); PLATELET COUNT (AUTO) 159 K/uL (130-400); RED BLOOD CELL COUNT(AUTO) 2.56 MIL/uL (4.50-6.20); RED CELL DISTRIBUTION WIDTH 13.4 % (11.0-15.5); WHITE BLOOD COUNT (AUTO) 5.7 K/uL (4.8-10.8)
[2023-08-26 06:39] LABS: ALBUMIN 3.4 g/dL (3.5-5.0); BILIRUBIN,TOTAL 0.6 mg/dL (0.2-1.0); PHOSPHORUS 6.2 mg/dL (2.5-4.9); POTASSIUM 4.2 mmol/L (3.5-5.1); TOTAL PROTEIN, SERUM 7.8 g/dL (6.0-8.3)
[2023-08-26 06:45] LABS: % IRON SATURATION 16.5 % (30-44)
[2023-08-26] MEDS: AMLODIPINE-BENAZEPRIL 5-20 MG PO SCH (08:38)
[2023-08-26] MEDS ORDERED: NON-FORMULARY MEDICATION 1 EACH (Amlodipine Besylate/Benazepril (Amlodipine-Benazepril 10- PO SCH (09:00)
[2023-08-26] MEDS ORDERED: COMPOUND IV MISC 1 EACH IVSOLN MISC PRN (12:00)
[2023-08-26] MEDS: EPOETIN ALFA-EPBX (NON-ESRD) 10,000 UNIT/ML VIAL SQ ONE (12:05)
[2023-08-26] MEDS: SEVELAMER HCL 800 MG TABLET PO SCH (12:10)
[2023-08-26 12:48] LABS: HEPATITIS B SURFACE ANTIBODY Negative (Reactive); HEPATITIS B SURFACE ANTIGEN Non-Reactive (Nonreactive)
[2023-08-26] MEDS: CLONIDINE HCL 0.1 MG TABLET PO PRN (19:06)
[2023-08-26] MEDS: IRON SUCROSE COMPLEX 300 MG in 0.9% NACL 250ML 250 ML IV ONE (21:19)
[2023-08-26] MEDS: FUROSEMIDE 40 MG TABLET PO SCH (21:20)
[2023-08-27] VITALS (21 sets, daily range): BP systolic 135–166; BP diastolic 55–79; PULSE 55–64; RESP 16–20; TEMP 98.3–98.5; O2SAT 62–93
[2023-08-27 06:06] LABS: HEMATOCRIT 24.3 % (42-54); MEAN CORPUSCULAR HGB CONC 30.5 g/dL (32.0-36.0); MEAN CORPUSCULAR VOLUME 95.3 fL (79-99); RED BLOOD CELL COUNT(AUTO) 2.55 MIL/uL (4.50-6.20); RED CELL DISTRIBUTION WIDTH 13.2 % (11.0-15.5); WHITE BLOOD COUNT (AUTO) 5.5 K/uL (4.8-10.8)
[2023-08-27 06:11] LABS: CREATININE 6.6 mg/dL (0.5-1.3); MAGNESIUM 1.9 mg/dL (1.80-2.40); POTASSIUM 3.8 mmol/L (3.5-5.1)
[2023-08-27] MEDS: LEVOTHYROXINE 50 MCG TABLET PO SCH (07:10)
[2023-08-27] MEDS: FENOFIBRATE 160 MG PO SCH (09:00)
[2023-08-27] MEDS: Dapagliflozin Propanediol (Farxiga) 10 MG PO SCH (09:00)
[2023-08-27] MEDS: LABETALOL HCL 200 MG TABLET PO SCH (09:35)
[2023-08-27] MEDS: CALCITRIOL 0.25 MCG CAP PO ONE (09:40)
[2023-08-27] MEDS: EPOETIN ALFA-EPBX (NON-ESRD) 10,000 UNIT/ML VIAL SQ SCH (16:45)
[2023-08-28] VITALS (9 sets, daily range): BP systolic 116–168; BP diastolic 61–79; PULSE 56–69; RESP 16–20; O2SAT 95–97
[2023-08-28 04:47] LABS: HEMATOCRIT 25.4 % (42-54); MEAN CORPUSCULAR HEMOGLOBIN 29.6 pg (27.0-33.0); MEAN CORPUSCULAR HGB CONC 31.9 g/dL (32.0-36.0); MEAN CORPUSCULAR VOLUME 92.7 fL (79-99); RED BLOOD CELL COUNT(AUTO) 2.74 MIL/uL (4.50-6.20); RED CELL DISTRIBUTION WIDTH 13.2 % (11.0-15.5); WHITE BLOOD COUNT (AUTO) 8.2 K/uL (4.8-10.8)
[2023-08-28 05:00] LABS: CREATININE 5.5 mg/dL (0.5-1.3); MAGNESIUM 1.8 mg/dL (1.80-2.40)
[2023-08-28] MEDS ORDERED: AMLO-258 PO (08:20)
[2023-08-28] MEDS: CALCITRIOL 0.25 MCG CAP PO SCH (08:27)
[2023-08-29] VITALS (41 sets, daily range): BP systolic 124–162; BP diastolic 53–75; PULSE 54–69; RESP 16–26; TEMP 97.9; O2SAT 88–96
[2023-08-29 05:55] LABS: HEMATOCRIT 24.8 % (42-54); MEAN CORPUSCULAR HEMOGLOBIN 28.7 pg (27.0-33.0); MEAN CORPUSCULAR HGB CONC 31.5 g/dL (32.0-36.0); MEAN CORPUSCULAR VOLUME 91.2 fL (79-99); RED BLOOD CELL COUNT(AUTO) 2.72 MIL/uL (4.50-6.20); RED CELL DISTRIBUTION WIDTH 13.3 % (11.0-15.5); WHITE BLOOD COUNT (AUTO) 7.9 K/uL (4.8-10.8)
[2023-08-29 06:11] LABS: CREATININE 6.2 mg/dL (0.5-1.3); MAGNESIUM 1.9 mg/dL (1.80-2.40); POTASSIUM 4.2 mmol/L (3.5-5.1)
[2023-08-29 06:24] LABS: INR 1.08 (0.85-1.15); PROTHROMBIN TIME 11.6 SEC (9.6-11.6)
[2023-08-29 06:25] LABS: PARTIAL THROMBOPLASTIN TIME 31.8 SEC (26.3-35.5)
[2023-08-29] MEDS ORDERED: CEFAZOLIN SODIUM 2 GM VIAL IVPB PRN (10:00)
[2023-08-29] MEDS: 0.9% NACL 500ML IV.SOLN 500 ML IV ONE (10:45)
[2023-08-29] MEDS: ACETAMINOPHEN 1,000 MG/100 ML VIAL IV ONE (10:56)
[2023-08-29] MEDS: MORPHINE 4 MG SYG ONE ×2 (10:56→13:14)
[2023-08-29] MEDS ORDERED: MIDAZOLAM HCL 1 MG/ML 2ML VIAL ONE (10:59)
[2023-08-29] MEDS ORDERED: PROPOFOL 10 MG/ML 20ML VIAL IV ONE ×2 (10:59→11:40)
[2023-08-29] MEDS ORDERED: ROCURONIUM BROMIDE 10MG/1ML 5ML VL ONE (10:59)
[2023-08-29] MEDS ORDERED: LIDOCAINE PF 100MG/5ML (2%) SYRINGE 5ML ONE (10:59)
[2023-08-29] MEDS ORDERED: FENTANYL CITRATE PF 50 MCG/1 ML 2ML VIAL ONE (11:00)
[2023-08-29] MEDS ORDERED: PHENYLEPHRINE HCL 10 MG/ML 1ML VIAL IV ONE (11:04)
[2023-08-29] MEDS: CEFAZOLIN SODIUM 1 GM VIAL ONE (11:15)
[2023-08-29] MEDS: CEFAZOLIN SODIUM 2 GM VIAL ONE (11:30)
[2023-08-29] MEDS ORDERED: ONDANSETRON 4MG INJ ONE (11:34)
[2023-08-29] MEDS ORDERED: DEXAMETHASONE SOD PHOSPHATE 4 MG/ML 1ML VIAL ONE (11:34)
[2023-08-29] MEDS ORDERED: EPHEDRINE SULFATE 50 MG/ML AMPULE ONE (11:52)
[2023-08-29] MEDS ORDERED: GLYCOPYRROLATE 0.2 MG/ML 5 ML VIAL ONE (11:52)
[2023-08-29] MEDS ORDERED: NEOSTIGMINE METHYLSULFATE 1MG/ML IV ONE (11:52)
[2023-08-29] MEDS ORDERED: HEPARIN 10,000 UNIT/10ML (1,000 UNIT/ML) VIAL ONE (11:58)
[2023-08-29] MEDS ORDERED: ACETAMINOPHEN 325 MG TAB PO PRN (12:30)
[2023-08-29] MEDS ORDERED: TRAMADOL HCL 50 MG TABLET PO PRN ×2 (12:30)
[2023-08-29 15:15] LABS: HEPATITIS B CORE AB TOTAL Non-Reactive (Nonreactive)
[2023-08-29] MEDS ORDERED: HEPARIN 5,000 UNIT VIAL SQ SCH (16:00)
[2023-08-29] MEDS ORDERED: 0.9% NACL 250ML 250 ML IV SCH (16:00)
[2023-08-29] MEDS: 0.9%NACL 1000ML 1,000 ML IV SCH (18:32)
[2023-08-29 20:33] LABS: HEPATITIS C ANTIBODY Non-Reactive (Nonreactive)
[2023-08-30] VITALS (9 sets, daily range): BP systolic 127–157; BP diastolic 64–73; PULSE 56–68; RESP 16–18; O2SAT 94–96
[2023-08-30 03:59] LABS: HEMATOCRIT 27.5 % (42-54); MEAN CORPUSCULAR HEMOGLOBIN 29.6 pg (27.0-33.0); MEAN CORPUSCULAR HGB CONC 31.6 g/dL (32.0-36.0); MEAN CORPUSCULAR VOLUME 93.5 fL (79-99); RED BLOOD CELL COUNT(AUTO) 2.94 MIL/uL (4.50-6.20); RED CELL DISTRIBUTION WIDTH 13.2 % (11.0-15.5)
[2023-08-30 04:14] LABS: CREATININE 5.1 mg/dL (0.5-1.3); MAGNESIUM 1.9 mg/dL (1.80-2.40); POTASSIUM 4.1 mmol/L (3.5-5.1)
[2023-08-31] VITALS (8 sets, daily range): BP systolic 119–151; BP diastolic 65–77; PULSE 63–69; RESP 16–18; O2SAT 92–94
[2023-08-31 06:07] LABS: HEMATOCRIT 24.9 % (42-54); MEAN CORPUSCULAR HEMOGLOBIN 29.7 pg (27.0-33.0); MEAN CORPUSCULAR HGB CONC 31.7 g/dL (32.0-36.0); MEAN CORPUSCULAR VOLUME 93.6 fL (79-99); RED BLOOD CELL COUNT(AUTO) 2.66 MIL/uL (4.50-6.20); RED CELL DISTRIBUTION WIDTH 13.8 % (11.0-15.5); WHITE BLOOD COUNT (AUTO) 10.6 K/uL (4.8-10.8)
[2023-08-31 06:21] LABS: CREATININE 6.6 mg/dL (0.5-1.3); MAGNESIUM 2.1 mg/dL (1.80-2.40); POTASSIUM 3.7 mmol/L (3.5-5.1)
[2023-08-31] MEDS ORDERED: HEPARIN 5,000 UNIT VIAL IJ SCH (08:00)
[2023-09-01] VITALS (21 sets, daily range): BP systolic 122–150; BP diastolic 62–74; PULSE 57–75; RESP 16–20; TEMP 98–98.1; O2SAT 94–97
[2023-09-01] MEDS: 0.9%NACL 1000ML 1,000 ML IV SCH (10:31)
[2023-09-01] MEDS: HEPARIN 5,000 UNIT VIAL SQ SCH (12:19)
[2023-09-02] VITALS (8 sets, daily range): BP systolic 124–149; BP diastolic 57–73; PULSE 59–71; RESP 16–20; O2SAT 96
[2023-09-02 05:04] LABS: HEMATOCRIT 26.2 % (42-54); MEAN CORPUSCULAR HEMOGLOBIN 28.9 pg (27.0-33.0); MEAN CORPUSCULAR HGB CONC 31.7 g/dL (32.0-36.0); MEAN CORPUSCULAR VOLUME 91.3 fL (79-99); RED BLOOD CELL COUNT(AUTO) 2.87 MIL/uL (4.50-6.20); RED CELL DISTRIBUTION WIDTH 13.5 % (11.0-15.5); WHITE BLOOD COUNT (AUTO) 8.9 K/uL (4.8-10.8)
[2023-09-02 05:22] LABS: CREATININE 6.2 mg/dL (0.5-1.3); POTASSIUM 4.1 mmol/L (3.5-5.1)
[2023-09-03] VITALS (19 sets, daily range): BP systolic 128–164; BP diastolic 58–81; PULSE 65–76; RESP 16; TEMP 98.2–98.4
[2023-09-03 06:20] LABS: HEMATOCRIT 27.5 % (42-54); MEAN CORPUSCULAR HEMOGLOBIN 29.6 pg (27.0-33.0); MEAN CORPUSCULAR HGB CONC 31.3 g/dL (32.0-36.0); MEAN CORPUSCULAR VOLUME 94.5 fL (79-99); RED BLOOD CELL COUNT(AUTO) 2.91 MIL/uL (4.50-6.20); RED CELL DISTRIBUTION WIDTH 13.7 % (11.0-15.5); WHITE BLOOD COUNT (AUTO) 8.5 K/uL (4.8-10.8)
[2023-09-03 06:41] LABS: CREATININE 7.1 mg/dL (0.5-1.3); MAGNESIUM 2.2 mg/dL (1.80-2.40); PHOSPHORUS 6.1 mg/dL (2.5-4.9); POTASSIUM 4.3 mmol/L (3.5-5.1)
[2023-09-03] MEDS: 0.9%NACL 1000ML 1,000 ML IV SCH (09:30)
[2023-09-03] MEDS: HEPARIN 5,000 UNIT VIAL IRRIG SCH (14:46)
== END 2023-09-03 18:05 | disposition home or self-care (01) | DRG 628 ==
LOC: EDH 07:45 → EDHIP 07:46 → UNDOADMIN 07:46 → EDHIP 10:04 → 3BH 14:55
PROVIDERS: ADMIT Internal Medicine Infectious Disease; ATTEND Internal Medicine Infectious Disease
PROC: 5A1D70Z Performance of Urinary Filtration, Intermittent, Less than 6 Hours Per Day (ICD-10-PCS; 2023-08-25)
PROC: 0JH63XZ Insertion of Tunneled Vascular Access Device into Chest Subcutaneous Tissue and Fascia, Percutaneous Approach (ICD-10-PCS; 2023-08-25)
PROC: 02HV33Z Insertion of Infusion Device into Superior Vena Cava, Percutaneous Approach (ICD-10-PCS; 2023-08-25)
PROC: B5181ZA Fluoroscopy of Superior Vena Cava using Low Osmolar Contrast, Guidance (ICD-10-PCS; 2023-08-25)
PROC: B548ZZA Ultrasonography of Superior Vena Cava, Guidance (ICD-10-PCS; 2023-08-25)
PROC: 5A1D70Z Performance of Urinary Filtration, Intermittent, Less than 6 Hours Per Day (ICD-10-PCS; 2023-08-26)
PROC: 5A1D70Z Performance of Urinary Filtration, Intermittent, Less than 6 Hours Per Day (ICD-10-PCS; 2023-08-27)
PROC: 5A1D70Z Performance of Urinary Filtration, Intermittent, Less than 6 Hours Per Day (ICD-10-PCS; 2023-08-29)
PROC: 03180ZD Bypass Left Brachial Artery to Upper Arm Vein, Open Approach (ICD-10-PCS; principal; 2023-08-29 11:15)
PROC: 5A1D70Z Performance of Urinary Filtration, Intermittent, Less than 6 Hours Per Day (ICD-10-PCS; 2023-09-01)
PROC: 5A1D70Z Performance of Urinary Filtration, Intermittent, Less than 6 Hours Per Day (ICD-10-PCS; 2023-09-03)
DX: E87.5 Hyperkalemia (principal); N18.6 End stage renal disease; Z68.41 Body mass index [BMI] 40.0-44.9, adult; I12.0 Hypertensive chronic kidney disease with stage 5 chronic kidney disease or end stage renal disease; E87.20 Acidosis, unspecified; E66.01 Morbid (severe) obesity due to excess calories; D64.9 Anemia, unspecified; E03.9 Hypothyroidism, unspecified; E11.22 Type 2 diabetes mellitus with diabetic chronic kidney disease; E78.00 Pure hypercholesterolemia, unspecified; Z83.3 Family history of diabetes mellitus; Z99.2 Dependence on renal dialysis
CPT/HCPCS: 36415; 36558; 71045; 77001; 80048; 80053; 80061; 82040; 82565; 82728; 82948; 83036; 83540; 83550; 83735; 84100; 84484; 84520; 85014; 85018; 85025; 85027; 85610; 85730; 86701; 86704; 86706; 86803; 86850; 86900; 86901; 86923; 87340; 87390; 90935; 93005; 93971; 94640; 99156; 99157; C1750; C1769; G0378; J0690; J1100; J1644; J1756; J2001; J2250; J2270; J2371; J2405; J2704; J2710; J3010; J3490; J7030; J7040; J7050; A4213; A4216; A4222; A4223; A4649; A4930; A6219; C1713; C1894; G0168; Q5106

== ENCOUNTER 2024-11-26 10:24 | Emergency (ER) | payer OTHER ==
[~2024-11-26] VITALS: Ht 190.5 cm; Wt 138.3 kg
[~2024-11-26 10:24] MED LIST changes: -AMLO-142 PO; +ASPI-1443 PO; +AURYXIA PO; -DAPA10TA PO; -FENO160 PO; +FOLI1TAB85 PO; -FURO40TA5 PO; -LEVO50CA4 PO; +LEVO88CA5 PO; +METO-391 PO; -MUPI22O TP; +ROSU10TA98 PO
--- NOTE | 2024-11-26 11:30 | NUR ---
US AT BEDSIDE
[2024-11-26 11:31] LABS: IMMATURE GRANULOCYTE ABSOLUTE 0.02 K/uL (0-1); NUCLEATED RED BLOOD CELLS 0.0 % (0.0-0.19); PLATELET COUNT (AUTO) 165 K/uL (130-400); RED BLOOD CELL COUNT(AUTO) 3.29 MIL/uL (4.50-6.20); RED CELL DISTRIBUTION WIDTH 16.6 % (11.0-15.5); WHITE BLOOD COUNT (AUTO) 6.6 K/uL (4.8-10.8)
--- NOTE | 2024-11-26 11:31 | ERN ---
General Chief Complaint: Lower Extremity Pain/Injury Stated Complaint: LT LEG SWELLING,REDNESS,AND PAIN Time Seen by MD: 11:32 Source: patient History of Present Illness Initial Comments He is a 49 year old male who came to the ER with past medical history of ESRD, CABG, diabetes mellitus, hypothyroidism came to the ER with chief complaint of left leg pain in the calf since 2 days ago. MDM: Differential diagnosis: Rationale: Tests considered and ordered secondary to shared decision making include: labs, ECG and radiology Previous outside records reviewed: Old ER visits. Risk of complication and/or morbidity or mortality of patient management: None Medications-Per medication reconciliation Need for hospitalization: Patient does meet criteria for hospitalization. Need for emergency major/minor surgery: No There are no social concerns with this patient. Prescription drug management Prescriptions will include symptomatic care Patient's prior external medical records from other ER visits were reviewed by me as indicated. Prior testing and results from previous visits were reviewed. Prior tests were taken into account with medical decision making and resource utilization, independent historian/historians were used to obtain complete medical history. I independently interpreted the test that were performed, results were reviewed by me and considered findings on radiology if ordered. Medical management and examination interpretation discussions were had by me with other qualified healthcare professionals as indicated for the patient's care. Timing/Duration: other (2 days) Severity: mild Associated Symptoms: other (chills) Allergies: Coded Allergies: No Known Drug Allergies (Unverified Allergy, Unknown, 06/07/17) Home Meds Reported Medications Aspirin (Aspirin EC) 81 Mg Tablet.dr, 81 MG PO DAILY, TAB 11/02/24 Vit B Cmplx 3/FA/Vit C/Biotin (Camryn-Kody Rx Tablet) 1 Mg-60 Mg-300 Mcg Tablet, 1 EACH PO DAILY, TAB 11/02/24 Metoprolol Succinate (Metoprolol Succinate) 50 Mg Tab.er.24h, 50 MG PO DAILY, TAB 11/02/24 Levothyroxine Sodium (Levothyroxine) 88 Mcg Capsule, 88 MCG PO ACBKFST, CAP 11/02/24 Rosuvastatin Calcium (Rosuvastatin Calcium) 10 Mg Tablet, 20 MG PO HS, TAB 11/02/24 [Auryxia] No Conflict Check, 630 MG PO TIDMEALS 11/02/24 Past Medical History Past Medical History: CAD, Diabetes-Type II, Hypertension, Renal Failure Past Surgical History: CABG, Other Surgical History Other: 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 Social History Dication He doesn't smoke, drink alcohol, or use illicit drugs. ROS Dictation ROS Dictation CONSTITUTIONAL: No chills, no fever, no weakness, no diaphoresis, no malaise. HEAD/FACE: No signs of trauma. EENT: No eye pain, no blurred vision, no tearing, no double vision, no ear pain, no ear discharge, no nose pain, no nasal congestion, no throat pain, no throat swelling, no mouth pain. RESPIRATORY: No cough, no orthopnea, no SOB, no stridor, no wheezing. CARDIOVASCULAR: No chest pain, no edema, no palpitations, no syncope. GASTROINTESTINAL/ABDOMINAL: abdominal pain, no constipation, no diarrhea, no nausea, no vomiting. GENITOURINARY: No abnormal discharge, no dysuria, no frequent urination, no hematuria. No complaints of pain in the genitals. MUSCULOSKELETAL: left calf pain No back pain, no gout, no joint pain, no joint swelling, no muscle pain, no muscle stiffness, no neck pain. INTEGUMENTARY: No change in color, no change in hair/nails, no dryness, no lesion, no lumps, no rash. NEUROLOGICAL/PSYCH: No anxiety, not depressed, no emotional problem, no headache, no numbness, no pre-existing deficit, no history of seizures, no tremors, no weakness. HEMATOLOGIC/LYMPHATIC: Not anemic, no history of blood clots, no apparent bleeding, no bruising, glands not swollen. All Systems Negative, Except as Noted. Physical Exam General Appearance: (+) no apparent distress Orientation: (+) alert, (+) oriented x 3 Head/Face Trauma: No Eye: bilateral eye normal inspection, bilateral eye PERRL, bilateral eye EOMI Ear, Nose, Throat: (+) hearing grossly normal, (+) normal ENT inspection, (+) moist mucous membraine Neck: (+) normal inspection Respiratory: (+) chest non-tender, (+) lungs clear, (+) well ventilated Respiratory Comment Has a dialysis catheter on the right side of his chest Heart: (+) regular Vascular: (+) no edema, (+) normal peripheral pulse Gastrointestinal: (+) soft, (+) non-tender Back: (+) normal inspection Extremities: (+) normal range of motion, (+) non-tender Extremities Comment Has left calf tenderness, left calf is warm to touch, callus on the base of left foot. Neurologic/Psychiatric: (+) normal speech, (+) no motor defecits, (+) no sensory deficits Skin: (+) normal color Lymphatic: (+) no adenopathy IVF Sepsis Management IVF Sepsis Management BMI >30kg/m2?: Yes Stroke Patient?: No Results Laboratory and Microbiology Lab and Micro Result Laboratory Tests Test 11/26/24 11:16 White Blood Count 6.6 K/uL (4.8-10.8) Red Blood Count 3.29 MIL/uL (4.50-6.20) L Hemoglobin 10.4 g/dL (14.0-18.0) L Hematocrit 32.7 % (42-54) L Mean Corpuscular Volume 99.4 fL (79-99) H Mean Corpuscular Hemoglobin 31.6 pg (27.0-33.0) Mean Corpuscular Hemoglobin Concent 31.8 g/dL (32.0-36.0) L Red Cell Distribution Width 16.6 % (11.0-15.5) H Platelet Count 165 K/uL (130-400) Mean Platelet Volume 8.9 fL (7.5-10.5) Immature Granulocyte % (Auto) 0.3 % (0-1) Neutrophils (%) (Auto) 78.2 % (40.0-77.0) H Lymphocytes (%) (Auto) 11.2 % (21.0-51.0) L Monocytes (%) (Auto) 8.9 % (3.0-13.0) Eosinophils (%) (Auto) 0.9 % (0.0-8.0) Basophils (%) (Auto) 0.5 % (0.0-5.0) Neutrophils # (Auto) 5.2 K/uL (1.8-7.7) Lymphocytes # (Auto) 0.7 K/uL (1.0-4.8) L Monocytes # (Auto) 0.6 K/uL (0.1-1.0) Eosinophils # (Auto) 0.06 K/uL (0.00-0.70) Basophils # (Auto) 0.03 K/uL (0.00-0.20) Absolute Immature Granulocyte (auto 0.02 K/uL (0-1) Nucleated Red Blood Cells 0.0 % (0.0-0.19) Sodium Level 138 mmol/L (136-145) Potassium Level 3.9 mmol/L (3.5-5.1) Chloride Level 97 mmol/L (101-111) L Carbon Dioxide Level 31 mmol/L (21-32) Blood Urea Nitrogen 26 mg/dL (7-18) H Creatinine 5.5 mg/dL (0.5-1.3) H Glomerular Filtration Rate Calc 12 mL/min (>90) Random Glucose 117 mg/dL (70-105) H Total Calcium 8.8 mg/dL (8.5-10.1) Total Bilirubin 0.9 mg/dL (0.2-1.0) Direct Bilirubin 0.3 mg/dL (0.0-0.3) Aspartate Amino Transf (AST/SGOT) 15 U/L (10-37) Alanine Aminotransferase (ALT/SGPT) 18 U/L (12-78) Alkaline Phosphatase 68 U/L (50-136) Total Protein 8.2 g/dL (6.0-8.3) Albumin 3.1 g/dL (3.5-5.0) L Labs Reviewed?: Yes EKG/XRAY/US/CT/MRI Ultrasound Comment us venous - negative for dvt MDM MDM: Differential diagnosis:cellulitis, dvt, venous stasis Rationale: Tests considered and ordered secondary to shared decision making include: Previous outside records reviewed: Old ER visits. Risk of complication and/or morbidity or mortality of patient management: None Medications-Per medication reconciliation Need for hospitalization: Patient does not meet criteria for hospitalization. Need for emergency major/minor surgery: No Patient is a 49 y/o male with hx of esrd on hd coming in to be evaluation of lower extremity swelling and erythema. Venous us and labs did not disclose acute findings. Patient qill be discharged with the diagnosis of venous stasis and cellulitis. ED Course Orders Procedure Category Date Status Time Cbc With Differential LAB 11/26/24 Complete 11:09 Basic Metabolic Panel LAB 11/26/24 Complete 11:09 Hepatic Function Panel LAB 11/26/24 Complete 11:09 Us Venous Doppler US 11/26/24 Taken Unilateral 11:09 Vital Signs Date Time Temp Pulse Resp B/P (MAP) Pulse Ox O2 Delivery O2 Flow Rate FiO2 11/26/24 12:25 98.8 79 16 164/66 98 Room Air* 0 21 11/26/24 10:48 98.8 83 18 165/61 100 Room Air* 0 21 11/26/24 10:26 99.1 86 20 163/70 97 Room Air 0 Critical Care Note Critical Time: 30 minutes DX & DISP Disposition: Discharge Departure Impression: Primary Impression: ESRD (end stage renal disease) on dialysis Additional Impression: Lower extremity cellulitis Condition: Stable Scripts Cephalexin Monohydrate (Keflex) 500 Mg Cap 1 CAP PO TID for 10 Days, #30 CAP 0 Refills Prov: NATALIE WEN MD 11/26/24 Additional Instructions: FOLLOW-UP WITH PRIMARY CARE PROVIDER IN 1 TO 2 DAYS. TAKE MEDICATIONS DIRECTED HERE IN THE EMERGENCY ROOM. OKAY TO CONTINUE HOME MEDICATIONS UNLESS OTHERWISE DISCUSSED DURING YOUR VISIT IN THE EMERGENCY ROOM TODAY. RETURN TO YOUR NEAREST EMERGENCY ROOM IF SYMPTOMS WORSEN OR IF THERE IS NO IMPROVEMENT. CALL 911 IF YOU NEED IMMEDIATE ASSISTANCE. TAKE TYLENOL [id number] NEEDED AND IF NO CONTRAINDICATIONS ARE PRESENT. INCREASE ORAL HYDRATION. A WOUND CULTURE OR URINE CULTURE WAS ORDERED HERE IN THE EMERGENCY ROOM DEPARTMENT PLEASE FOLLOW-UP WITH PRIMARY CARE PROVIDER AND ADVISE THEM TO GET REPORTS FROM OUR FACILITY. IF YOU HAD ANY RAUDEL WRAP/SPLINTS THAT WERE APPLIED HERE, PLEASE DO NOT REMOVE THEM UNTIL YOU SEE YOUR PRIMARY CARE OR SPECIALTY. Referrals: Referrals: YOLI PORTILLO MD (PCP) ARDEN PETERSON MD Time of Disposition: 12:40 ATTESTATION BY PHYSICIAN I have seen and examined the patient. I reviewed the documentation, medical decision making, and treatment plan as noted by the resident. I agree with the findings and plan of care. Natalie Wen MD, AKSHAY MD Nov 26, 2024 11:31 NATALIE WEN MD Nov 26, 2024 13:02
[2024-11-26 11:49] LABS: CREATININE 5.5 mg/dL (0.5-1.3); GLOMERULAR FILTR. RATE CALC 12.0 mL/min (>90); GLUCOSE,RANDOM 117.0 mg/dL (70-105); SODIUM SERUM 138.0 mmol/L (136-145); UREA NITROGEN, BLOOD 26.0 mg/dL (7-18)
[2024-11-26 11:53] LABS: ASPARTATE AMINOTRANSFERASE 15.0 U/L (10-37); TOTAL PROTEIN, SERUM 8.2 g/dL (6.0-8.3)
[2024-11-26 12:25] VITALS: BP 164/66; PULSE 79; RESP 16; TEMP 98.8; O2SAT 98
[2024-11-26] MEDS ORDERED: CEPH500B PO (13:02)
--- NOTE | 2024-11-26 13:14 | HMCIMG ---
US VENOUS DOPPLER UNILATERAL REASON: left calf pain and to rule out DVT COMPARISON: None Technique: Bilateral venous doppler ultrasound was performed with spectral analysis and color flow imaging technique. FINDINGS: There is a normal appearance of the common femoral, deep femoral, the profunda femoris and popliteal veins. Proximal calf veins appear normal as well. There is normal response to compression and augmentation. There is no evidence of deep venous thrombosis. IMPRESSION: Normal bilateral lower extremity venous Doppler ultrasound.
--- NOTE | 2024-11-26 13:47 | NUR ---
PT STABLE NO DISTRESS, VITALS WNL NO C/O PAIN NOW, NO IV AT THIS TIME, PT GIVEN INSTRUCTIONS AT BEDSIDE, VERBALIZED UNDERSTANDING. PT DROVE HIMSELF HOME.
== END 2024-11-26 14:51 | disposition home or self-care (01) ==
LOC: EDH 10:24
DX: I12.0 Hypertensive chronic kidney disease with stage 5 chronic kidney disease or end stage renal disease (principal); L03.116 Cellulitis of left lower limb; E11.22 Type 2 diabetes mellitus with diabetic chronic kidney disease; N18.6 End stage renal disease; I25.10 Atherosclerotic heart disease of native coronary artery without angina pectoris; E03.9 Hypothyroidism, unspecified; Z79.82 Long term (current) use of aspirin; Z79.899 Other long term (current) drug therapy; Z99.2 Dependence on renal dialysis; Z95.1 Presence of aortocoronary bypass graft; Z89.422 Acquired absence of other left toe(s)
CPT/HCPCS: 36415; 80048; 80076; 85025; 93971; 99284; 99291

== ENCOUNTER 2024-11-28 16:40 | Emergency (ER) | payer OTHER ==
[~2024-11-28] VITALS: Ht 190.5 cm; Wt 138.3 kg
[~2024-11-28 16:40] MED LIST changes: +CEPH500B PO
[2024-11-28 17:31] VITALS: BP 125/65; PULSE 72; RESP 16; TEMP 98.3; O2SAT 98
--- NOTE | 2024-11-28 17:35 | ERN ---
General Chief Complaint: Lower Extremity Pain/Injury Stated Complaint: LOWER LEG REDNESS Time Seen by MD: 16:46 Time Seen by Midlevel: 16:46 Source: patient History of Present Illness Initial Comments 49-year-old male with a past medical history of end-stage renal disease on hemodialysis presenting the emergency department for evaluation of left leg redness. The patient was seen in our emergency department for the same complaint two days ago where he had blood work and an ultrasound performed. At that time he was ultimately discharged with a diagnosis cellulitis and sent home with cephalexin. Patient states he has been taking it as prescribed. He has not seen an improvement in the redness over the last two days however family me mber urged him to reports in the emergency department as they saw no improvement. Patient states he is now able to palpate areas of his leg without any pain and that is how he knows his symptoms are improving. Allergies: Coded Allergies: No Known Drug Allergies (Unverified Allergy, Unknown, 06/07/17) Home Meds Active Scripts Cephalexin Monohydrate (Keflex) 500 Mg Cap, 1 CAP PO TID for 10 Days, #30 CAP 0 Refills Prov:MONTY WEN MD 11/26/24 Reported Medications Aspirin (Aspirin EC) 81 Mg Tablet.dr, 81 MG PO DAILY, TAB 11/02/24 Vit B Cmplx 3/FA/Vit C/Biotin (Camryn-[facility] Rx Tablet) 1 Mg-60 Mg-300 Mcg Tablet, 1 EACH PO DAILY, TAB 11/02/24 Metoprolol Succinate (Metoprolol Succinate) 50 Mg Tab.er.24h, 50 MG PO DAILY, TAB 11/02/24 Levothyroxine Sodium (Levothyroxine) 88 Mcg Capsule, 88 MCG PO ACBKFST, CAP 11/02/24 Rosuvastatin Calcium (Rosuvastatin Calcium) 10 Mg Tablet, 20 MG PO HS, TAB 11/02/24 [Auryxia] No Conflict Check, 630 MG PO TIDMEALS 11/02/24 Past Medical History Past Medical History: High Cholesterol, Hypertension, Hypothyroid, Renal Disese, Renal Failure Past Surgical History: LAVA Surgical History Other: 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 13 point review of systems assessed and all negative except for above. Physical Exam Physical Exam Dictation Vital Signs reviewed General Appearance: Alert, oriented x 3, no acute distress, well developed, nourished. Head and Face: non-traumatic. Eyes: PERRL, pink conjunctivas, eyelid no trauma, anterior chamber with arcus senilis. Ears: Pinnas intact and no signs of trauma or erythema ear canals clear and no discharge TM no erythema Nose: No discharge, no bleeding. Oropharynx: Mouth normal, tongue pink, pharynx clear,no erythema, tonsils no exudates, no abscesses noted, mucous membrane moist Neck: Supple, non-tender, no thyromegaly, no masses, no JVD, no bruits Breast:Deferred Chest:No tenderness, no crepitus, no paradoxical movement, no retractions Lungs:Clear, well-ventilated, symmetric, no rales, no wheezing, no rhonchi, no stridor, good breath sounds bilaterally Heart: Regular rate, regular rhythm, no murmur, no gallops Vascular: no peripheral edema, Abdomen: Soft, positive bowel sounds, nondistended, no guarding, nontender, no rebound, no masses no hepatomegaly, no splenomegaly, no Bond's sign, no hernias. Rectal: Deferred Genital: Deferred Neurological: Normal speech, motor function intact, sensory function intact Musculoskeletal: Neck nontender, full range of motion, back nontender, full range of motion, Extremities: Chronic venous stasis to bilateral lower extremities, there is some erythema to the lower extremity consistent with a cellulitis Skin: Color pink, dry, no turgor, no rash, no lacerations, no abrasions, no contusions. Lymphatic: Deferred MDM MDM: 49-year-old male with a past medical history of end-stage renal disease on hemodialysis presenting the emergency department for evaluation of left leg redness. The patient was seen in our emergency department for the same complaint two days ago where he had blood work and an ultrasound performed. At that time he was ultimately discharged with a diagnosis cellulitis and sent home with cephalexin. Patient states he has been taking it as prescribed. He has not seen an improvement in the redness over the last two days however family member urged him to reports in the emergency department as they saw no improvement. Patient states he is now able to palpate areas of his leg without any pain and that is how he knows his symptoms are improving. On physical examination patient is in no acute distress. Patient is afebrile and nontoxic appearing. Vital signs are stable. There is chronic venous stasis to bilateral lower extremities. There is some mild erythema to the left lower extremity. However the patient is already on oral antibiotics and reports improvement. We will give one dose of Rocephin in the emergency department and will have him continue oral antibiotics outpatient. If he develops any new or worsening symptoms he was advised to report to the ER for further evaluation Differential diagnosis: Cellulitis, wellness examination, failed outpatient therapy There are no social concerns with this patient. Prescription drug management Prescriptions will include: None Medical management and examination interpretation discussions were had by me with other qualified healthcare professionals as indicated for the patient's care. ED Course Orders Procedure Category Date Status Time Ceftriaxone 1g Vial PHA 11/28/24 Complete (Rocephine 1g Inj) 17:30 Current Medications Medications (Trade) Dose Ordered Sig/Darcie Route PRN Reason Start Time Stop Time Status Last Admin Dose Admin Ceftriaxone Sodium (ROCEphine 1G INJ) 1 gm ONCE ONCE IM 11/28/24 17:30 11/28/24 17:31 DC 11/28/24 17:21 Vital Signs Date Time Temp Pulse Resp B/P (MAP) Pulse Ox O2 Delivery O2 Flow Rate FiO2 11/28/24 17:31 98.2 72 16 125/65 98 Room Air* 0 21 11/28/24 16:42 98.2 74 18 126/69 97 Room Air DX & DISP Disposition: Discharge Departure Impression: Primary Impression: Lower extremity cellulitis Condition: Stable Additional Instructions: You were seen in our emergency department two days ago. At that time you had blood work and an ultrasound performed. The ultrasound did not show any evidence of a blood clot. Your blood work was stable and did not show an elevation in your white blood cell count. You were started on oral antibiotics for outpatient management. You have been on those antibiotics for the past two days. Based on your physical examination today it does appear that your left lower extremity redness/swelling is slowly improving. It is a good sign that you have not developed any fever or chills. Out of an abundance of precaution you were given a shot of antibiotics today in the emergency department. Please continue your oral antibiotics at home. If you develop any fever, chills, or worsening redness to the left lower leg pl ease report to the ER for further evaluation. Referrals: YOLI PORTILLO MD (PCP) Time of Disposition: 17:34 I have reviewed the case, and I agree with, Diagnosis and Plan I performed the substantive portion of the visit. I have reviewed and personally made and approve the management plan that is documented in the note by myself or the [facility]. I acknowledge for responsibility for the patient's management plan. TJ PARMAR PAC Nov 28, 2024 17:35
== END 2024-11-28 18:13 | disposition home or self-care (01) ==
LOC: EDH 16:40
DX: L03.116 Cellulitis of left lower limb (principal); E78.00 Pure hypercholesterolemia, unspecified; E03.9 Hypothyroidism, unspecified; I12.0 Hypertensive chronic kidney disease with stage 5 chronic kidney disease or end stage renal disease; N18.6 End stage renal disease; Z79.82 Long term (current) use of aspirin; Z79.899 Other long term (current) drug therapy; Z99.2 Dependence on renal dialysis; Z89.422 Acquired absence of other left toe(s)
CPT/HCPCS: 96372; 99283; J0696